=== PATIENT | male | born 1955 | race Caucasian/White ===

== ENCOUNTER 2018-03-27 17:33 | Inpatient (IN) | payer OTHER ==
[2018-03-27] MEDS ORDERED: HYDROCODONE/APAP (5/325) TAB PO (18:30)
[2018-03-27] MEDS ORDERED: NACL 0.9% 3 ML SYG IV (18:30)
[2018-03-27] MEDS ORDERED: ACETAMINOPHEN 325 MG TAB PO (18:30)
[2018-03-27] MEDS ORDERED: MAGNESIUM HYDROXIDE 30ML CUP PO (18:30)
[2018-03-27] MEDS ORDERED: IBUPROFEN 600 MG TAB PO (18:30)
[2018-03-27] MEDS ORDERED: NA PHOSPHATE/BIPHOS 133 ML ENEMA PR (18:30)
[2018-03-27] MEDS ORDERED: ONDANSETRON 4 MG TAB PO (18:30)
[2018-03-27] MEDS ORDERED: BISACODYL 10 MG SUPP PR (18:30)
[2018-03-27] MEDS ORDERED: METOCLOPRAMIDE 10 MG INJ IV (18:30)
[2018-03-27 18:50] LABS: ANION GAP 12 (8-16); BLOOD UREA NITROGEN 29 mg/dl (7-20); CALCIUM 9.2 mg/dl (8.4-10.2); CARBON DIOXIDE 24 mmol/L (21-31); CHLORIDE 111 mmol/L (97-110); CREATININE 1.67 mg/dl (0.61-1.24); GLUCOSE 177 mg/dl (70-220); POTASSIUM 5.2 mmol/L (3.5-5.1); SODIUM 142 mmol/L (135-144)
[2018-03-27] MEDS ORDERED: GLUCAGON 1 MG INJ IM (19:00)
[2018-03-27] MEDS ORDERED: GLUCOSE GEL 15 GRAM TUBE PO ×2 (19:00)
[2018-03-27] MEDS ORDERED: GLUCOSE GEL 15 GRAM TUBE BUCCAL (19:00)
[2018-03-27] MEDS ORDERED: DEXTROSE 50% 50 ML SYRINGE IV ×2 (19:00)
[2018-03-27] MEDS: HYPOGLYCEMIA PROTOCOL when Glucose is <70 mg/dL or symptomatic <90 mg/dL. XX (19:11)
[2018-03-27] MEDS: Discontinue current oral sulfonylureas (glyburide, glipizide, and/or glimepiride) prior to XX (19:11)
[2018-03-27] MEDS: SOD CHLORIDE 0.9% 1,000 ML IV (19:20)
[2018-03-27] MEDS: AMLODIPINE 5 MG TAB PO (19:20)
[2018-03-27] MEDS: INSULIN ASPART [NOVOLOG] 3 ML PEN SC ×2 (19:47→20:42)
[2018-03-27] MEDS ORDERED: INSULIN GLARGINE [LANtus] 3 ML PEN SC (20:00)
[2018-03-27] MEDS: TRIMETHOPRIM/SULFAMETHOX (DS) TAB PO (20:40)
[2018-03-27] MEDS: LEVOFLOXACIN 750 MG TABLET PO (20:40)
[2018-03-27] MEDS ORDERED: INSULIN ASPART [NOVOLOG] 3 ML PEN SC (21:00)
[2018-03-27 23:11] LABS: ADD UMIC YES; UR ASCORBIC ACID NEGATIVE (NEGATIVE); UR BACTERIA FEW /HPF (NONE SEEN); UR BILIRUBIN (Dip) NEGATIVE (NEGATIVE); UR BLOOD (Dip) 1+ mg/dL (NEGATIVE); UR CLARITY CLEAR (CLEAR); UR COLOR YELLOW (YELLOW); UR GLUCOSE (Dip) 1+ mg/dL (NEGATIVE); UR KETONES (Dip) NEGATIVE (NEGATIVE); UR LEUKOCYTE ESTERASE (Dip) NEGATIVE Leu/ul (NEGATIVE); UR NITRITE (Dip) NEGATIVE (NEGATIVE); UR RBC 6 /HPF (0-5); UR TOTAL PROTEIN (Dip) 3+ mg/dl (NEGATIVE); UR UROBILINOGEN (Dip) NEGATIVE (NEGATIVE); UR WBC 2 /HPF (0-5)
[2018-03-27 23:23] LABS: CREATININE,URINE RANDOM 57.78 mg/dl (20-370)
[2018-03-27 23:35] LABS: SODIUM,URINE RANDOM 98 mmol/L (30-90)
[2018-03-28 00:09] LABS: OSMOLALITY,URINE 422 mOsm/kg (250-1200)
[2018-03-28] MEDS: ACCU-CHEK XX (01:47)
[2018-03-28] MEDS: SOD CHLORIDE 0.9% 1,000 ML IV (02:41)
[2018-03-28 05:51] LABS: ADD MAN DIFF? NO
[2018-03-28 06:01] LABS: WHITE BLOOD COUNT 6.4 10^3/ul (4.8-10.8)
[2018-03-28 06:01] LABS: ABNORMAL IP MESSAGE 1; BASOPHILS % 0.2 % (0.0-2.0); EOSINOPHILS # 0.2 10^3/ul (0.0-0.5); EOSINOPHILS % 2.4 % (0.0-7.0); HEMATOCRIT 24.1 % (42.0-52.0); HEMOGLOBIN 8.1 g/dl (14.0-18.0); LYMPHOCYTES # 1.4 10^3/ul (0.8-2.9); LYMPHOCYTES % 21.2 % (15.0-51.0); MEAN CORPUSCULAR HEMOGLOBIN 30.6 pg (29.0-33.0); MEAN CORPUSCULAR HGB CONC 33.6 g/dl (32.0-37.0); MEAN CORPUSCULAR VOLUME 90.9 fl (82.0-101.0); MEAN PLATELET VOLUME 10.6 fl (7.4-10.4); MONOCYTE # 0.5 10^3/ul (0.3-0.9); MONOCYTES % 8.2 % (0.0-11.0); NEUTROPHIL # 4.3 10^3/ul (1.6-7.5); NEUTROPHILS % 67.7 % (39.0-77.0); PLATELET COUNT 98 10^3/UL (140-415); POSITIVE DIFF @See below; RED BLOOD COUNT 2.65 10^6/ul (4.70-6.10); RED CELL DISTRIBUTION WIDTH 12.9 % (11.5-14.5)
[2018-03-28 06:15] LABS: ANION GAP 13 (8-16); BLOOD UREA NITROGEN 29 mg/dl (7-20); CALCIUM 8.5 mg/dl (8.4-10.2); CARBON DIOXIDE 20 mmol/L (21-31); CHLORIDE 114 mmol/L (97-110); CREATININE 1.49 mg/dl (0.61-1.24); GLUCOSE 119 mg/dl (70-220); MAGNESIUM 1.7 mg/dl (1.7-2.5); POTASSIUM 4.9 mmol/L (3.5-5.1); SODIUM 142 mmol/L (135-144)
[2018-03-28] MEDS: INSULIN ASPART [NOVOLOG] 3 ML PEN SC ×4 (08:05→20:42)
[2018-03-28 08:06] LABS: HEMOGLOBIN A1C 6.1 % (0-5.9)
[2018-03-28] MEDS: TRIMETHOPRIM/SULFAMETHOX (DS) TAB PO ×2 (08:06→20:35)
[2018-03-28] MEDS: AMLODIPINE 5 MG TAB PO (08:07)
[2018-03-28] MEDS: ENOXAPARIN 40 MG/0.4 ML SYG SC (08:13)
[2018-03-28] MEDS ORDERED: INSULIN ASPART [NOVOLOG] 3 ML PEN SC (08:15)
[2018-03-28 09:06] LABS: OSMOLALITY 294 mOsm/kg (280-295)
[2018-03-29] MEDS: ACCU-CHEK XX (00:24)
[2018-03-29 06:28] LABS: ANION GAP 13 (8-16); BLOOD UREA NITROGEN 25 mg/dl (7-20); CALCIUM 8.9 mg/dl (8.4-10.2); CARBON DIOXIDE 20 mmol/L (21-31); CHLORIDE 110 mmol/L (97-110); CREATININE 1.79 mg/dl (0.61-1.24); GLUCOSE 122 mg/dl (70-220); MAGNESIUM 1.5 mg/dl (1.7-2.5); PHOSPHORUS 4.2 mg/dl (2.5-4.9); POTASSIUM 5.3 mmol/L (3.5-5.1); SODIUM 138 mmol/L (135-144)
[2018-03-29] MEDS: TRIMETHOPRIM/SULFAMETHOX (DS) TAB PO (08:06)
[2018-03-29] MEDS: AMLODIPINE 5 MG TAB PO (08:06)
[2018-03-29] MEDS: MAGNESIUM OXIDE 400 MG TAB PO (08:07)
[2018-03-29] MEDS: ENOXAPARIN 40 MG/0.4 ML SYG SC (08:09)
[2018-03-29] MEDS: INSULIN ASPART [NOVOLOG] 3 ML PEN SC ×4 (08:09→20:38)
[2018-03-29] MEDS: ONDANSETRON 4 MG INJ IV (10:50)
[2018-03-29] MEDS: BISACODYL (EC) 5 MG TAB PO (12:11)
[2018-03-29] MEDS: DOCUSATE SODIUM 100 MG CAP PO (17:33)
[2018-03-29] MEDS: LEVOFLOXACIN 750 MG TABLET PO (20:38)
[2018-03-30] MEDS: ACCU-CHEK XX (02:00)
[2018-03-30 05:55] LABS: ADD MAN DIFF? NO
[2018-03-30 06:00] LABS: ABNORMAL IP MESSAGE 1; BASOPHILS % 0.1 % (0.0-2.0); EOSINOPHILS # 0.1 10^3/ul (0.0-0.5); EOSINOPHILS % 1.9 % (0.0-7.0); HEMATOCRIT 23.3 % (42.0-52.0); HEMOGLOBIN 7.9 g/dl (14.0-18.0); LYMPHOCYTES # 1.3 10^3/ul (0.8-2.9); LYMPHOCYTES % 19.3 % (15.0-51.0); MEAN CORPUSCULAR HEMOGLOBIN 30.4 pg (29.0-33.0); MEAN CORPUSCULAR HGB CONC 33.9 g/dl (32.0-37.0); MEAN CORPUSCULAR VOLUME 89.6 fl (82.0-101.0); MEAN PLATELET VOLUME 11.1 fl (7.4-10.4); MONOCYTE # 0.6 10^3/ul (0.3-0.9); MONOCYTES % 8.5 % (0.0-11.0); NEUTROPHIL # 4.7 10^3/ul (1.6-7.5); NEUTROPHILS % 69.9 % (39.0-77.0); PLATELET COUNT 95 10^3/UL (140-415); POSITIVE DIFF @See below; RED CELL DISTRIBUTION WIDTH 12.7 % (11.5-14.5)
[2018-03-30 06:00] LABS: WHITE BLOOD COUNT 6.7 10^3/ul (4.8-10.8)
[2018-03-30 06:26] LABS: ANION GAP 13 (8-16); BLOOD UREA NITROGEN 29 mg/dl (7-20); CALCIUM 8.9 mg/dl (8.4-10.2); CARBON DIOXIDE 21 mmol/L (21-31); CHLORIDE 110 mmol/L (97-110); CREATININE 2.08 mg/dl (0.61-1.24); GLUCOSE 113 mg/dl (70-220); MAGNESIUM 1.7 mg/dl (1.7-2.5); PHOSPHORUS 4.2 mg/dl (2.5-4.9); POTASSIUM 5.2 mmol/L (3.5-5.1); SODIUM 139 mmol/L (135-144)
[2018-03-30] MEDS: INSULIN ASPART [NOVOLOG] 3 ML PEN SC ×4 (08:15→20:26)
[2018-03-30] MEDS: AMLODIPINE 5 MG TAB PO (09:21)
[2018-03-30] MEDS: ENOXAPARIN 40 MG/0.4 ML SYG SC (09:25)
[2018-03-30] MEDS ORDERED: hydrALAzine 20 MG INJ IV (20:30)
[2018-03-31] MEDS: ACCU-CHEK XX (02:00)
[2018-03-31 06:51] LABS: ANION GAP 13 (8-16); BLOOD UREA NITROGEN 30 mg/dl (7-20); CALCIUM 9.1 mg/dl (8.4-10.2); CARBON DIOXIDE 22 mmol/L (21-31); CHLORIDE 110 mmol/L (97-110); CREATININE 2.01 mg/dl (0.61-1.24); GLUCOSE 108 mg/dl (70-220); MAGNESIUM 1.8 mg/dl (1.7-2.5); PHOSPHORUS 4.6 mg/dl (2.5-4.9); SODIUM 140 mmol/L (135-144)
[2018-03-31] MEDS: INSULIN ASPART [NOVOLOG] 3 ML PEN SC ×4 (08:15→20:24)
[2018-03-31] MEDS: AMLODIPINE 10 MG TAB PO (08:16)
[2018-03-31] MEDS: ENOXAPARIN 40 MG/0.4 ML SYG SC (08:17)
[2018-03-31] MEDS ORDERED: VANCOMYCIN IV PER PHARMACY XX (12:00)
[2018-03-31 12:37] LABS: PROTIME 15.4 Sec (11.9-14.9); PT RATIO 1.2
[2018-03-31] MEDS: CEFEPIME 2GM/50 ML (PMX) 50 ML IVPB ×2 (14:00→20:24)
[2018-03-31] MEDS: VANCOMYCIN 1.75 GM in SOD CHLORIDE 0.9% 500 ML IVPB (14:36)
[2018-03-31] MEDS: HEPARIN 5,000 UNIT/0.5 ML VIAL SC (20:27)
[2018-04-01] MEDS: ACCU-CHEK XX (02:00)
[2018-04-01 05:52] LABS: ADD MAN DIFF? NO
[2018-04-01 06:00] LABS: WHITE BLOOD COUNT 6.9 10^3/ul (4.8-10.8)
[2018-04-01 06:00] LABS: BASOPHILS % 0.3 % (0.0-2.0); EOSINOPHILS # 0.2 10^3/ul (0.0-0.5); EOSINOPHILS % 2.4 % (0.0-7.0); HEMATOCRIT 24.7 % (42.0-52.0); HEMOGLOBIN 8.5 g/dl (14.0-18.0); LYMPHOCYTES # 1.5 10^3/ul (0.8-2.9); LYMPHOCYTES % 21.6 % (15.0-51.0); MEAN CORPUSCULAR HEMOGLOBIN 30.9 pg (29.0-33.0); MEAN CORPUSCULAR HGB CONC 34.4 g/dl (32.0-37.0); MEAN CORPUSCULAR VOLUME 89.8 fl (82.0-101.0); MONOCYTE # 0.6 10^3/ul (0.3-0.9); MONOCYTES % 9.2 % (0.0-11.0); NEUTROPHIL # 4.6 10^3/ul (1.6-7.5); NEUTROPHILS % 66.1 % (39.0-77.0); PLATELET COUNT 105 10^3/UL (140-415); RED BLOOD COUNT 2.75 10^6/ul (4.70-6.10); RED CELL DISTRIBUTION WIDTH 12.5 % (11.5-14.5)
[2018-04-01 06:33] LABS: ANION GAP 16 (8-16); BLOOD UREA NITROGEN 34 mg/dl (7-20); CALCIUM 8.7 mg/dl (8.4-10.2); CARBON DIOXIDE 18 mmol/L (21-31); CHLORIDE 111 mmol/L (97-110); CREATININE 1.96 mg/dl (0.61-1.24); GLUCOSE 119 mg/dl (70-220); POTASSIUM 5.2 mmol/L (3.5-5.1); SODIUM 140 mmol/L (135-144)
[2018-04-01] MEDS: INSULIN ASPART [NOVOLOG] 3 ML PEN SC ×5 (08:15→20:33)
[2018-04-01] MEDS: CEFEPIME 2GM/50 ML IVPB (08:34)
[2018-04-01] MEDS: AMLODIPINE 10 MG TAB PO (08:34)
[2018-04-01] MEDS: HEPARIN 5,000 UNIT/0.5 ML VIAL SC ×3 (08:39→20:33)
[2018-04-01] MEDS: SOD CHLORIDE 0.9% 1,000 ML IV ×2 (12:53→21:45)
[2018-04-01] MEDS: NA POLYST SULFON 15 GM/60 ML BTL PO (12:53)
[2018-04-02] MEDS: ACCU-CHEK XX (01:06)
[2018-04-02] MEDS: VANCOMYCIN 1.25 GM in SOD CHLORIDE 0.9% 250 ML IVPB (01:13)
[2018-04-02 06:07] LABS: ADD MAN DIFF? NO
[2018-04-02 06:10] LABS: WHITE BLOOD COUNT 6.8 10^3/ul (4.8-10.8)
[2018-04-02 06:10] LABS: ABNORMAL IP MESSAGE 1; BASOPHILS % 0.3 % (0.0-2.0); EOSINOPHILS # 0.2 10^3/ul (0.0-0.5); EOSINOPHILS % 2.2 % (0.0-7.0); HEMATOCRIT 24.3 % (42.0-52.0); HEMOGLOBIN 8.1 g/dl (14.0-18.0); LYMPHOCYTES # 1.5 10^3/ul (0.8-2.9); LYMPHOCYTES % 22.2 % (15.0-51.0); MEAN CORPUSCULAR HEMOGLOBIN 29.7 pg (29.0-33.0); MEAN CORPUSCULAR HGB CONC 33.3 g/dl (32.0-37.0); MEAN PLATELET VOLUME 10.9 fl (7.4-10.4); MONOCYTE # 0.6 10^3/ul (0.3-0.9); MONOCYTES % 8.1 % (0.0-11.0); NEUTROPHIL # 4.5 10^3/ul (1.6-7.5); NEUTROPHILS % 66.9 % (39.0-77.0); PLATELET COUNT 99 10^3/UL (140-415); POSITIVE DIFF @See below; RED BLOOD COUNT 2.73 10^6/ul (4.70-6.10); RED CELL DISTRIBUTION WIDTH 12.4 % (11.5-14.5)
[2018-04-02 06:35] LABS: ANION GAP 13 (8-16); BLOOD UREA NITROGEN 27 mg/dl (7-20); CALCIUM 8.9 mg/dl (8.4-10.2); CARBON DIOXIDE 21 mmol/L (21-31); CHLORIDE 112 mmol/L (97-110); CREATININE 1.65 mg/dl (0.61-1.24); GLUCOSE 117 mg/dl (70-220); POTASSIUM 4.8 mmol/L (3.5-5.1); SODIUM 141 mmol/L (135-144)
[2018-04-02] MEDS: SOD CHLORIDE 0.9% 1,000 ML IV ×3 (08:00→18:00)
[2018-04-02] MEDS: INSULIN ASPART [NOVOLOG] 3 ML PEN SC ×4 (08:15→21:00)
[2018-04-02] MEDS: HEPARIN 5,000 UNIT/0.5 ML VIAL SC ×2 (09:00→21:00)
[2018-04-02] MEDS: AMLODIPINE 10 MG TAB PO (09:08)
[2018-04-02] MEDS: CEFEPIME 2GM/50 ML IVPB (09:08)
[2018-04-02] MEDS ORDERED: PROPOFOL 20 ML (20:14)
[2018-04-02] MEDS ORDERED: MIDAZOLAM 1 MG/ML 2 ML INJ (20:14)
[2018-04-02] MEDS ORDERED: ONDANSETRON 4 MG INJ (20:27)
[2018-04-02] MEDS ORDERED: DEXAMETHASONE 4 MG/ML 1 ML INJ (20:27)
[2018-04-02] MEDS ORDERED: METOCLOPRAMIDE 10 MG INJ (20:27)
[2018-04-02] MEDS ORDERED: ACETAMINOPHEN 1000MG/100ML IV 100 ML (20:28)
[2018-04-02] MEDS: BUPIVACAINE 0.5% (SDV) 30 ML INJ (20:38)
[2018-04-02] MEDS ORDERED: FENTAnyl 50 MCG/ML VIAL IV ×3 (21:00)
[2018-04-02] MEDS ORDERED: OXYCODONE/ACETAMINOPHEN (5/325) TAB PO (21:00)
[2018-04-02] MEDS ORDERED: hydrALAzine 20 MG INJ IV (21:00)
[2018-04-02] MEDS ORDERED: LABETALOL HCL 20MG INJ IV (21:00)
[2018-04-02] MEDS ORDERED: MEPERIDINE 25 MG INJ IV (21:00)
[2018-04-02] MEDS ORDERED: HYDROmorphONE (0.2 MG/ML) 10ML SYG IV ×3 (21:00)
[2018-04-02] MEDS ORDERED: EPHEDrine SULFATE 50 MG/5 ML SYG IV (21:00)
[2018-04-02] MEDS ORDERED: METOCLOPRAMIDE 10 MG INJ IV (21:00)
[2018-04-02] MEDS ORDERED: ONDANSETRON 4 MG INJ IV (21:00)
[2018-04-02] MEDS ORDERED: DIPHENHYDRAMINE 50 MG INJ IV (21:00)
[2018-04-03] MEDS: ACCU-CHEK XX (02:00)
[2018-04-03] MEDS: VANCOMYCIN 750 MG in DEXTROSE 5% 150 ML IVPB ×2 (04:00→15:24)
[2018-04-03] MEDS: SOD CHLORIDE 0.9% 1,000 ML IV ×3 (04:13→23:45)
[2018-04-03 05:50] LABS: ADD MAN DIFF? NO
[2018-04-03 05:55] LABS: BASOPHILS % 0.2 % (0.0-2.0); HEMATOCRIT 23.6 % (42.0-52.0); LYMPHOCYTES # 0.8 10^3/ul (0.8-2.9); LYMPHOCYTES % 14.2 % (15.0-51.0); MEAN CORPUSCULAR HEMOGLOBIN 30.3 pg (29.0-33.0); MEAN CORPUSCULAR HGB CONC 33.9 g/dl (32.0-37.0); MEAN CORPUSCULAR VOLUME 89.4 fl (82.0-101.0); MEAN PLATELET VOLUME 11.5 fl (7.4-10.4); MONOCYTE # 0.1 10^3/ul (0.3-0.9); MONOCYTES % 2.5 % (0.0-11.0); NEUTROPHIL # 4.6 10^3/ul (1.6-7.5); NEUTROPHILS % 82.4 % (39.0-77.0); PLATELET COUNT 100 10^3/UL (140-415); RED BLOOD COUNT 2.64 10^6/ul (4.70-6.10); RED CELL DISTRIBUTION WIDTH 12.3 % (11.5-14.5)
[2018-04-03 05:55] LABS: WHITE BLOOD COUNT 5.6 10^3/ul (4.8-10.8)
[2018-04-03 06:32] LABS: ANION GAP 17 (8-16); BLOOD UREA NITROGEN 24 mg/dl (7-20); CALCIUM 8.4 mg/dl (8.4-10.2); CARBON DIOXIDE 17 mmol/L (21-31); CHLORIDE 113 mmol/L (97-110); CREATININE 1.41 mg/dl (0.61-1.24); GLUCOSE 172 mg/dl (70-220); POTASSIUM 4.8 mmol/L (3.5-5.1); SODIUM 142 mmol/L (135-144)
[2018-04-03] MEDS: CEFEPIME 2GM/50 ML IVPB (08:25)
[2018-04-03] MEDS: AMLODIPINE 10 MG TAB PO (08:25)
[2018-04-03] MEDS: INSULIN ASPART [NOVOLOG] 3 ML PEN SC ×4 (08:35→21:00)
[2018-04-03] MEDS: HEPARIN 5,000 UNIT/0.5 ML VIAL SC ×2 (09:00→20:11)
[2018-04-03] MEDS: LIDOCAINE 1% (MPF) 5 ML VIAL SC (12:30)
[2018-04-03 14:19] LABS: VANCOMYCIN,TROUGH 7.5 ug/ml (10.0-20.0)
[2018-04-03] MEDS: VANCOMYCIN 1.25 GM in SOD CHLORIDE 0.9% 250 ML IVPB (15:23)
[2018-04-04] MEDS: ACCU-CHEK XX (01:14)
[2018-04-04] MEDS: VANCOMYCIN 750 MG in DEXTROSE 5% 150 ML IVPB ×2 (03:56→16:16)
[2018-04-04] MEDS: SOD CHLORIDE 0.9% 1,000 ML IV ×2 (06:00→10:00)
[2018-04-04 06:04] LABS: ADD MAN DIFF? NO
[2018-04-04 06:21] LABS: WHITE BLOOD COUNT 6.5 10^3/ul (4.8-10.8)
[2018-04-04 06:21] LABS: ABNORMAL IP MESSAGE 1; BASOPHILS % 0.2 % (0.0-2.0); EOSINOPHILS # 0.1 10^3/ul (0.0-0.5); EOSINOPHILS % 1.2 % (0.0-7.0); HEMATOCRIT 21.4 % (42.0-52.0); HEMOGLOBIN 7.3 g/dl (14.0-18.0); LYMPHOCYTES # 1.8 10^3/ul (0.8-2.9); LYMPHOCYTES % 27.8 % (15.0-51.0); MEAN CORPUSCULAR HEMOGLOBIN 30.3 pg (29.0-33.0); MEAN CORPUSCULAR HGB CONC 34.1 g/dl (32.0-37.0); MEAN CORPUSCULAR VOLUME 88.8 fl (82.0-101.0); MEAN PLATELET VOLUME 10.9 fl (7.4-10.4); MONOCYTE # 0.6 10^3/ul (0.3-0.9); MONOCYTES % 8.4 % (0.0-11.0); NEUTROPHILS % 62.1 % (39.0-77.0); PLATELET COUNT 88 10^3/UL (140-415); POSITIVE DIFF @See below; RED BLOOD COUNT 2.41 10^6/ul (4.70-6.10); RED CELL DISTRIBUTION WIDTH 12.4 % (11.5-14.5)
[2018-04-04 06:46] LABS: ANION GAP 14 (8-16); BLOOD UREA NITROGEN 19 mg/dl (7-20); CALCIUM 8.3 mg/dl (8.4-10.2); CARBON DIOXIDE 19 mmol/L (21-31); CHLORIDE 114 mmol/L (97-110); CREATININE 1.37 mg/dl (0.61-1.24); GLUCOSE 117 mg/dl (70-220); POTASSIUM 3.6 mmol/L (3.5-5.1); SODIUM 143 mmol/L (135-144)
[2018-04-04] MEDS: INSULIN ASPART [NOVOLOG] 3 ML PEN SC ×3 (07:56→17:05)
[2018-04-04] MEDS: AMLODIPINE 10 MG TAB PO (08:13)
[2018-04-04] MEDS: CEFEPIME 2GM/50 ML IVPB (08:13)
[2018-04-04] MEDS: HEPARIN 5,000 UNIT/0.5 ML VIAL SC (08:17)
[2018-04-04 16:28] LABS: HEMATOCRIT 23.2 % (42.0-52.0); HEMOGLOBIN 7.9 g/dl (14.0-18.0)
== END 2018-04-04 19:20 | disposition home or self-care (01) | DRG 580 ==
LOC: MS2 04-02 12:50
PROC: 0J9R0ZZ Drainage of Left Foot Subcutaneous Tissue and Fascia, Open Approach (ICD-10-PCS; principal; 2018-04-02 19:00)
PROC: 02HV33Z Insertion of Infusion Device into Superior Vena Cava, Percutaneous Approach (ICD-10-PCS; 2018-04-02 20:13)
DX: L02.612 Cutaneous abscess of left foot (principal); M86.8X7 Other osteomyelitis, ankle and foot; M84.478A Pathological fracture, left toe(s), initial encounter for fracture; L03.116 Cellulitis of left lower limb; N17.9 Acute kidney failure, unspecified; E11.69 Type 2 diabetes mellitus with other specified complication; E11.621 Type 2 diabetes mellitus with foot ulcer; E11.628 Type 2 diabetes mellitus with other skin complications; E11.40 Type 2 diabetes mellitus with diabetic neuropathy, unspecified; L97.529 Non-pressure chronic ulcer of other part of left foot with unspecified severity; E66.9 Obesity, unspecified; Z68.31 Body mass index [BMI] 31.0-31.9, adult; I73.89 Other specified peripheral vascular diseases; I12.9 Hypertensive chronic kidney disease with stage 1 through stage 4 chronic kidney disease, or unspecified chronic kidney disease; N18.9 Chronic kidney disease, unspecified
CPT/HCPCS: 36569; 71045; 73630-LT; 73718; 76775; 76937; 80048; 80202; 81001; 81003; 82540; 82962; 83036; 83735; 83930; 83935; 84100; 84155; 84300; 85014; 85018; 85025; 85610; 87070; 93922

== ENCOUNTER 2019-05-21 23:54 | Emergency (ER) | payer OTHER ==
[2019-05-22 01:22] LABS: ADD MAN DIFF? NO
[2019-05-22 01:29] LABS: ABNORMAL IP MESSAGE 1; BASOPHILS % 0.5 % (0.0-2.0); EOSINOPHILS # 0.1 10^3/ul (0.0-0.5); EOSINOPHILS % 2.9 % (0.0-7.0); HEMATOCRIT 23.3 % (42.0-52.0); HEMOGLOBIN 8.2 g/dl (14.0-18.0); LYMPHOCYTES # 0.7 10^3/ul (0.8-2.9); MEAN CORPUSCULAR HEMOGLOBIN 29.6 pg (29.0-33.0); MEAN CORPUSCULAR HGB CONC 35.2 g/dl (32.0-37.0); MEAN CORPUSCULAR VOLUME 84.1 fl (82.0-101.0); MEAN PLATELET VOLUME 10.5 fl (7.4-10.4); MONOCYTE # 0.5 10^3/ul (0.3-0.9); MONOCYTES % 12.3 % (0.0-11.0); NEUTROPHIL # 2.4 10^3/ul (1.6-7.5); PLATELET COUNT 74 10^3/UL (140-415); POSITIVE DIFF @See below; RED BLOOD COUNT 2.77 10^6/ul (4.70-6.10); RED CELL DISTRIBUTION WIDTH 14.8 % (11.5-14.5)
[2019-05-22 01:29] LABS: WHITE BLOOD COUNT 3.7 10^3/ul (4.8-10.8)
[2019-05-22 01:45] LABS: ADD UMIC YES; UR ASCORBIC ACID NEGATIVE (NEGATIVE); UR BILIRUBIN (Dip) NEGATIVE (NEGATIVE); UR BLOOD (Dip) NEGATIVE (NEGATIVE); UR CLARITY CLEAR (CLEAR); UR COLOR YELLOW (YELLOW); UR GLUCOSE (Dip) NEGATIVE (NEGATIVE); UR KETONES (Dip) NEGATIVE (NEGATIVE); UR LEUKOCYTE ESTERASE (Dip) NEGATIVE Leu/ul (NEGATIVE); UR NITRITE (Dip) NEGATIVE (NEGATIVE); UR RBC 1 /HPF (0-5); UR SPECIFIC GRAVITY (Dip) 1.005 (1.003-1.030); UR TOTAL PROTEIN (Dip) 2+ mg/dl (NEGATIVE); UR UROBILINOGEN (Dip) NEGATIVE (NEGATIVE); UR WBC 0 /HPF (0-5)
[2019-05-22 01:49] LABS: ALANINE AMINOTRANSFERASE 36 IU/L (13-69); ALBUMIN 3.7 g/dl (3.3-4.9); ALBUMIN/GLOBULIN RATIO 0.88; ALKALINE PHOSPHATASE 284 IU/L (42-121); ANION GAP 11 (5-13); ASPARTATE AMINO TRANSFERASE 37 IU/L (15-46); BILIRUBIN,INDIRECT 0.7 mg/dl (0-1.1); BILIRUBIN,TOTAL 0.7 mg/dl (0.2-1.3); BLOOD UREA NITROGEN 27 mg/dl (7-20); CALCIUM 8.8 mg/dl (8.4-10.2); CARBON DIOXIDE 20 mmol/L (21-31); CHLORIDE 100 mmol/L (97-110); Estimated GFR 29 mL/min (>60); GLUCOSE 97 mg/dl (70-220); INR 1.18; PARTIAL THROMBOPLASTIN TIME 37.5 Sec (23.0-35.0); POTASSIUM 4.6 mmol/L (3.5-5.1); PROTIME 15.1 Sec (11.9-14.9); PT RATIO 1.2; SODIUM 131 mmol/L (135-144); TOTAL PROTEIN 7.9 g/dl (6.1-8.1)
[2019-05-22] MEDS: ONDANSETRON 4 MG INJ IV (01:58)
[2019-05-22] MEDS: SOD CHLORIDE 0.9% 500 ML IV (01:58)
[2019-05-22 02:01] LABS: TROPONIN-I < 0.012 ng/ml (0.000-0.120)
== END 2019-05-22 04:30 | disposition home or self-care (01) ==
LOC: E/R 23:54
DX: R11.2 Nausea with vomiting, unspecified (principal); C22.8 Malignant neoplasm of liver, primary, unspecified as to type; R07.9 Chest pain, unspecified; R10.9 Unspecified abdominal pain
CPT/HCPCS: 36415; 71045; 74176; 80053; 81001; 83605; 84484; 85025; 85610; 85730; 87040-91; 87086; 93005; 99285-25

== ENCOUNTER 2019-06-04 17:07 | Inpatient (IN) | payer OTHER ==
[2019-06-04 19:46] LABS: ABNORMAL IP MESSAGE 1; HEMATOCRIT 34.3 % (42.0-52.0); HEMOGLOBIN 11.9 g/dl (14.0-18.0); MEAN CORPUSCULAR HEMOGLOBIN 28.8 pg (29.0-33.0); MEAN CORPUSCULAR HGB CONC 34.7 g/dl (32.0-37.0); MEAN CORPUSCULAR VOLUME 83.1 fl (82.0-101.0); PLATELET COUNT 35 10^3/UL (140-415); POSITIVE DIFF @See below; RED BLOOD COUNT 4.13 10^6/ul (4.70-6.10); RED CELL DISTRIBUTION WIDTH 16.4 % (11.5-14.5)
[2019-06-04 19:46] LABS: WHITE BLOOD COUNT 8.4 10^3/ul (4.8-10.8)
[2019-06-04] MEDS: DEXTROSE 5%-0.45% NACL 1,000 ML IV (19:54)
[2019-06-04] MEDS: CLONIDINE 0.2 MG/24 HR PATCH TRANSDERM (19:55)
[2019-06-04 20:00] LABS: ADD MAN DIFF? YES
[2019-06-04 20:08] LABS: ALANINE AMINOTRANSFERASE 812 IU/L (13-69); ALBUMIN 3.1 g/dl (3.3-4.9); ALBUMIN/GLOBULIN RATIO 0.88; ALKALINE PHOSPHATASE 215 IU/L (42-121); ANION GAP 9 (5-13); BILIRUBIN,INDIRECT 2.1 mg/dl (0-1.1); BILIRUBIN,TOTAL 2.1 mg/dl (0.2-1.3); BLOOD UREA NITROGEN 34 mg/dl (7-20); CALCIUM 8.3 mg/dl (8.4-10.2); CARBON DIOXIDE 19 mmol/L (21-31); CHLORIDE 108 mmol/L (97-110); CREATININE 2.67 mg/dl (0.61-1.24); Estimated GFR 24 mL/min (>60); GLUCOSE 107 mg/dl (70-220); POTASSIUM 4.7 mmol/L (3.5-5.1); SODIUM 136 mmol/L (135-144); TOTAL PROTEIN 6.6 g/dl (6.1-8.1)
[2019-06-04 20:11] LABS: INR 1.26; PARTIAL THROMBOPLASTIN TIME 31.4 Sec (23.0-35.0); PROTIME 15.9 Sec (11.9-14.9); PT RATIO 1.2
[2019-06-04] MEDS: ONDANSETRON 4 MG INJ IV (20:11)
[2019-06-04] MEDS: hydrALAzine 20 MG INJ IV (20:12)
[2019-06-04 20:22] LABS: ASPARTATE AMINO TRANSFERASE 1059 IU/L (15-46)
[2019-06-04 20:50] LABS: ANISOCYTOSIS 1+ (0-0); ERYTHROBLAST% (NRBC) (M) 1 % (0-0); GIANT THROMBO% (M) 9 % (0-0); LYMPHOCYTES #M 1.5 10^3/ul (0.8-2.9); LYMPHOCYTES % (M) 19 % (15-51); MONOCYTE #M 0.5 10^3/ul (0.3-0.9); MONOCYTES % (M) 6 % (0-11); PLATELET ESTIMATE DECREASED; POIKILOCYTOSIS 3+ (0-0); POLYCHROMASIA 1+ (0-0); SEGMENTED NEUTROPHILS (M) % 75 % (39-77); SMUDGE%M 5 % (0-0)
[2019-06-04] MEDS: OCTREOTIDE 500 MCG in DEXTROSE 5% 49 ML IV (20:53)
[2019-06-05] MEDS: hydrALAzine 20 MG INJ IV ×3 (00:03→19:44)
[2019-06-05] MEDS: ACCU-CHEK XX (02:00)
[2019-06-05] MEDS: PANTOPRAZOLE 40 MG INJ IV ×2 (05:15→17:40)
[2019-06-05] MEDS: INSULIN ASPART [NOVOLOG] 3 ML PEN SC ×5 (05:15→23:10)
[2019-06-05] MEDS: ONDANSETRON 4 MG INJ IV (05:16)
[2019-06-05 05:59] LABS: ADD MAN DIFF? NO
[2019-06-05 06:03] LABS: WHITE BLOOD COUNT 8.2 10^3/ul (4.8-10.8)
[2019-06-05 06:03] LABS: ABNORMAL IP MESSAGE 1; BASOPHILS % 0.2 % (0.0-2.0); EOSINOPHILS % 0.4 % (0.0-7.0); HEMATOCRIT 33.4 % (42.0-52.0); HEMOGLOBIN 11.5 g/dl (14.0-18.0); LYMPHOCYTES # 0.6 10^3/ul (0.8-2.9); LYMPHOCYTES % 7.8 % (15.0-51.0); MEAN CORPUSCULAR HEMOGLOBIN 28.8 pg (29.0-33.0); MEAN CORPUSCULAR HGB CONC 34.4 g/dl (32.0-37.0); MEAN CORPUSCULAR VOLUME 83.5 fl (82.0-101.0); MEAN PLATELET VOLUME 11.2 fl (7.4-10.4); MONOCYTE # 0.7 10^3/ul (0.3-0.9); NEUTROPHIL # 6.8 10^3/ul (1.6-7.5); NEUTROPHILS % 82.1 % (39.0-77.0); PLATELET COUNT 33 10^3/UL (140-415); POSITIVE DIFF @See below; RED CELL DISTRIBUTION WIDTH 16.9 % (11.5-14.5)
[2019-06-05 06:55] LABS: ALBUMIN 2.9 g/dl (3.3-4.9); ALBUMIN/GLOBULIN RATIO 0.82; ALKALINE PHOSPHATASE 223 IU/L (42-121); ANION GAP 9 (5-13); BILIRUBIN,INDIRECT 1.4 mg/dl (0-1.1); BILIRUBIN,TOTAL 1.4 mg/dl (0.2-1.3); BLOOD UREA NITROGEN 37 mg/dl (7-20); CALCIUM 8.4 mg/dl (8.4-10.2); CARBON DIOXIDE 18 mmol/L (21-31); CHLORIDE 108 mmol/L (97-110); CREATININE 2.63 mg/dl (0.61-1.24); Estimated GFR 25 mL/min (>60); GLUCOSE 146 mg/dl (70-220); POTASSIUM 4.2 mmol/L (3.5-5.1); SODIUM 135 mmol/L (135-144); TOTAL PROTEIN 6.4 g/dl (6.1-8.1)
[2019-06-05 06:58] LABS: ANION GAP 8 (5-13); BLOOD UREA NITROGEN 37 mg/dl (7-20); CALCIUM 8.4 mg/dl (8.4-10.2); CARBON DIOXIDE 19 mmol/L (21-31); CHLORIDE 110 mmol/L (97-110); CREATININE 2.55 mg/dl (0.61-1.24); Estimated GFR 26 mL/min (>60); GLUCOSE 150 mg/dl (70-220); POTASSIUM 4.3 mmol/L (3.5-5.1); SODIUM 137 mmol/L (135-144)
[2019-06-05 07:30] LABS: ALANINE AMINOTRANSFERASE 1128 IU/L (13-69); ASPARTATE AMINO TRANSFERASE 1242 IU/L (15-46)
[2019-06-05] MEDS ORDERED: GLUCAGON 1 MG INJ IM (08:30)
[2019-06-05] MEDS ORDERED: DEXTROSE 50% 50 ML SYRINGE IV ×2 (08:30)
[2019-06-05] MEDS ORDERED: GLUCOSE GEL 15 GRAM TUBE BUCCAL (08:30)
[2019-06-05] MEDS ORDERED: GLUCOSE GEL 15 GRAM TUBE PO ×2 (08:30)
[2019-06-05] MEDS: PHYTONADIONE 10 MG in DEXTROSE 5% 50 ML IVPB (08:42)
[2019-06-05] MEDS: DEXTROSE 5%-0.45% NACL 1,000 ML IV ×2 (08:43→22:45)
[2019-06-05] MEDS: PROPOFOL 40 ML (13:35)
[2019-06-05] MEDS: LIDOCAINE 2% (SDV) 5 ML INJ (13:35)
[2019-06-05] MEDS ORDERED: EPHEDrine 25 MG/5 ML SYG IV (14:30)
[2019-06-05] MEDS ORDERED: ONDANSETRON 4 MG INJ IV (14:30)
[2019-06-05] MEDS ORDERED: HYDROmorphONE 1 MG/5 ML IV SYRINGE IV (14:30)
[2019-06-05] MEDS: PROPRANOLOL 20 MG TAB PO ×2 (15:23→23:09)
[2019-06-05] MEDS: OCTREOTIDE 500 MCG in DEXTROSE 5% 49 ML IV (15:56)
[2019-06-05] MEDS: ALBUMIN HUMAN 25% 100 ML IV (17:52)
[2019-06-05] MEDS: CEFTRIAXONE 1 GM/50 ML (PMX) 50 ML IVPB (21:27)
[2019-06-06] MEDS: ALBUMIN HUMAN 25% 100 ML IV ×3 (01:27→17:16)
[2019-06-06] MEDS: ACCU-CHEK XX (02:00)
[2019-06-06] MEDS: INSULIN ASPART [NOVOLOG] 3 ML PEN SC ×4 (06:00→21:13)
[2019-06-06 06:03] LABS: ADD MAN DIFF? NO
[2019-06-06] MEDS: PANTOPRAZOLE 40 MG INJ IV ×2 (06:05→17:15)
[2019-06-06 06:09] LABS: WHITE BLOOD COUNT 8.8 10^3/ul (4.8-10.8)
[2019-06-06 06:09] LABS: ABNORMAL IP MESSAGE 1; BASOPHILS % 0.1 % (0.0-2.0); EOSINOPHILS % 0.1 % (0.0-7.0); HEMATOCRIT 26.9 % (42.0-52.0); HEMOGLOBIN 9.5 g/dl (14.0-18.0); LYMPHOCYTES # 0.9 10^3/ul (0.8-2.9); LYMPHOCYTES % 9.8 % (15.0-51.0); MEAN CORPUSCULAR HGB CONC 35.3 g/dl (32.0-37.0); MEAN CORPUSCULAR VOLUME 84.9 fl (82.0-101.0); MEAN PLATELET VOLUME 10.7 fl (7.4-10.4); MONOCYTE # 0.9 10^3/ul (0.3-0.9); MONOCYTES % 10.4 % (0.0-11.0); NEUTROPHIL # 6.9 10^3/ul (1.6-7.5); NEUTROPHILS % 78.6 % (39.0-77.0); POSITIVE DIFF @See below; RED BLOOD COUNT 3.17 10^6/ul (4.70-6.10); RED CELL DISTRIBUTION WIDTH 16.9 % (11.5-14.5)
[2019-06-06 06:21] LABS: PLATELET COUNT 29 10^3/UL (140-415)
[2019-06-06 06:31] LABS: ANION GAP 9 (5-13); BLOOD UREA NITROGEN 36 mg/dl (7-20); CALCIUM 8.2 mg/dl (8.4-10.2); CARBON DIOXIDE 18 mmol/L (21-31); CHLORIDE 108 mmol/L (97-110); CREATININE 2.48 mg/dl (0.61-1.24); Estimated GFR 27 mL/min (>60); GLUCOSE 145 mg/dl (70-220); POTASSIUM 3.8 mmol/L (3.5-5.1); SODIUM 135 mmol/L (135-144)
[2019-06-06] MEDS: PHYTONADIONE 10 MG in DEXTROSE 5% 50 ML IVPB (08:36)
[2019-06-06] MEDS: PROPRANOLOL 20 MG TAB PO ×2 (08:37→21:11)
[2019-06-06] MEDS: OCTREOTIDE 500 MCG in DEXTROSE 5% 49 ML IV (11:28)
[2019-06-06] MEDS: CEFTRIAXONE 1 GM/50 ML (PMX) 50 ML IVPB (13:51)
[2019-06-06] MEDS: DEXTROSE 5%-0.45% NACL 1,000 ML IV (16:04)
[2019-06-07] MEDS: ACCU-CHEK XX (02:00)
[2019-06-07] MEDS: ALBUMIN HUMAN 25% 100 ML IV ×2 (02:07→08:26)
[2019-06-07] MEDS: hydrALAzine 20 MG INJ IV ×3 (04:43→20:37)
[2019-06-07] MEDS: OCTREOTIDE 500 MCG in DEXTROSE 5% 49 ML IV (04:44)
[2019-06-07] MEDS: INSULIN ASPART [NOVOLOG] 3 ML PEN SC ×3 (04:44→17:53)
[2019-06-07] MEDS: PANTOPRAZOLE 40 MG INJ IV ×2 (04:44→17:30)
[2019-06-07 06:40] LABS: ADD MAN DIFF? NO
[2019-06-07] MEDS: DEXTROSE 5%-0.45% NACL 1,000 ML IV (06:40)
[2019-06-07 06:45] LABS: ABNORMAL IP MESSAGE 1; BASOPHILS % 0.1 % (0.0-2.0); EOSINOPHILS # 0.1 10^3/ul (0.0-0.5); EOSINOPHILS % 0.7 % (0.0-7.0); HEMATOCRIT 25.7 % (42.0-52.0); LYMPHOCYTES # 0.9 10^3/ul (0.8-2.9); LYMPHOCYTES % 11.4 % (15.0-51.0); MEAN CORPUSCULAR HEMOGLOBIN 29.4 pg (29.0-33.0); MONOCYTE # 0.8 10^3/ul (0.3-0.9); MONOCYTES % 10.2 % (0.0-11.0); NEUTROPHIL # 5.9 10^3/ul (1.6-7.5); NEUTROPHILS % 77.2 % (39.0-77.0); PLATELET COUNT 31 10^3/UL (140-415); POSITIVE DIFF @See below; RED BLOOD COUNT 3.06 10^6/ul (4.70-6.10); RED CELL DISTRIBUTION WIDTH 16.6 % (11.5-14.5)
[2019-06-07 06:45] LABS: WHITE BLOOD COUNT 7.6 10^3/ul (4.8-10.8)
[2019-06-07 07:09] LABS: ANION GAP 9 (5-13); BLOOD UREA NITROGEN 34 mg/dl (7-20); CALCIUM 7.9 mg/dl (8.4-10.2); CARBON DIOXIDE 18 mmol/L (21-31); CHLORIDE 105 mmol/L (97-110); Estimated GFR 32 mL/min (>60); GLUCOSE 146 mg/dl (70-220); POTASSIUM 3.7 mmol/L (3.5-5.1); SODIUM 132 mmol/L (135-144)
[2019-06-07 07:37] LABS: PROSTATE SPECIFIC ANTIGEN 0.5 ng/ml (0.0-4.0)
[2019-06-07] MEDS: PHYTONADIONE 10 MG in DEXTROSE 5% 50 ML IVPB (08:24)
[2019-06-07] MEDS: PROPRANOLOL 20 MG TAB PO ×2 (08:25→20:33)
[2019-06-07] MEDS: CEFTRIAXONE 1 GM/50 ML (PMX) 50 ML IVPB (14:33)
[2019-06-08] MEDS: ACCU-CHEK XX (01:34)
[2019-06-08] MEDS: OCTREOTIDE 500 MCG in DEXTROSE 5% 49 ML IV ×2 (03:09→23:34)
[2019-06-08] MEDS: hydrALAzine 20 MG INJ IV ×3 (03:10→23:50)
[2019-06-08] MEDS: INSULIN ASPART [NOVOLOG] 3 ML PEN SC ×5 (06:00→23:34)
[2019-06-08] MEDS: PANTOPRAZOLE 40 MG INJ IV ×2 (06:09→17:42)
[2019-06-08 10:10] LABS: PATH REVIEW? YES
[2019-06-08] MEDS: PHYTONADIONE 10 MG in DEXTROSE 5% 50 ML IVPB (10:56)
[2019-06-08] MEDS: POLYETHYLENE GLYCOL 17 GM PACKET PO (10:56)
[2019-06-08] MEDS: PROPRANOLOL 20 MG TAB PO ×2 (10:57→21:27)
[2019-06-08] MEDS: CEFTRIAXONE 1 GM/50 ML (PMX) 50 ML IVPB (12:30)
[2019-06-09] MEDS: ACCU-CHEK XX (01:48)
[2019-06-09] MEDS: hydrALAzine 20 MG INJ IV ×2 (04:17→14:00)
[2019-06-09] MEDS: INSULIN ASPART [NOVOLOG] 3 ML PEN SC ×4 (06:00→20:32)
[2019-06-09] MEDS: PANTOPRAZOLE 40 MG INJ IV ×2 (06:44→17:23)
[2019-06-09] MEDS: PROPRANOLOL 20 MG TAB PO ×2 (08:50→20:32)
[2019-06-09] MEDS: POLYETHYLENE GLYCOL 17 GM PACKET PO (08:50)
[2019-06-09] MEDS ORDERED: BISACODYL 10 MG SUPP PR (09:00)
[2019-06-09] MEDS: BISACODYL (EC) 5 MG TAB PO (10:00)
[2019-06-09] MEDS: LUBIPROSTONE 24 MCG CAP PO ×2 (10:30→21:00)
[2019-06-09] MEDS: CEFTRIAXONE 1 GM/50 ML (PMX) 50 ML IVPB (12:52)
[2019-06-09] MEDS ORDERED: CEFTRIAXONE 1 GM/NS 50 ML IVPB (16:00)
[2019-06-09] MEDS: OCTREOTIDE 500 MCG in DEXTROSE 5% 49 ML IV (20:31)
[2019-06-10] MEDS: hydrALAzine 20 MG INJ IV ×2 (00:15→14:03)
[2019-06-10] MEDS: ACCU-CHEK XX (02:00)
[2019-06-10 03:48] LABS: OCCULT BLOOD STOOL POSITIVE (NEGATIVE)
[2019-06-10] MEDS: PANTOPRAZOLE 40 MG INJ IV ×2 (06:06→17:37)
[2019-06-10 06:52] LABS: ADD MAN DIFF? NO
[2019-06-10 06:56] LABS: ABNORMAL IP MESSAGE 1; BASOPHILS % 0.3 % (0.0-2.0); EOSINOPHILS # 0.1 10^3/ul (0.0-0.5); EOSINOPHILS % 2.8 % (0.0-7.0); HEMOGLOBIN 9.1 g/dl (14.0-18.0); LYMPHOCYTES # 0.8 10^3/ul (0.8-2.9); LYMPHOCYTES % 20.4 % (15.0-51.0); MEAN CORPUSCULAR HEMOGLOBIN 29.5 pg (29.0-33.0); MEAN CORPUSCULAR VOLUME 84.4 fl (82.0-101.0); MEAN PLATELET VOLUME 11.5 fl (7.4-10.4); MONOCYTE # 0.7 10^3/ul (0.3-0.9); MONOCYTES % 17.8 % (0.0-11.0); NEUTROPHIL # 2.3 10^3/ul (1.6-7.5); NEUTROPHILS % 58.2 % (39.0-77.0); PLATELET COUNT 44 10^3/UL (140-415); POSITIVE DIFF @See below; RED BLOOD COUNT 3.08 10^6/ul (4.70-6.10); RED CELL DISTRIBUTION WIDTH 16.8 % (11.5-14.5)
[2019-06-10 07:15] LABS: PHOSPHORUS 4.2 mg/dl (2.5-4.9)
[2019-06-10 07:15] LABS: MAGNESIUM 1.6 mg/dl (1.7-2.5)
[2019-06-10 07:17] LABS: ALANINE AMINOTRANSFERASE 171 IU/L (13-69); ALBUMIN 2.9 g/dl (3.3-4.9); ALBUMIN/GLOBULIN RATIO 0.93; ALKALINE PHOSPHATASE 235 IU/L (42-121); ANION GAP 13 (5-13); ASPARTATE AMINO TRANSFERASE 41 IU/L (15-46); BILIRUBIN,INDIRECT 0.7 mg/dl (0-1.1); BILIRUBIN,TOTAL 0.7 mg/dl (0.2-1.3); BLOOD UREA NITROGEN 40 mg/dl (7-20); CALCIUM 8.1 mg/dl (8.4-10.2); CARBON DIOXIDE 14 mmol/L (21-31); CHLORIDE 103 mmol/L (97-110); CREATININE 2.06 mg/dl (0.61-1.24); Estimated GFR 33 mL/min (>60); GLUCOSE 131 mg/dl (70-220); POTASSIUM 3.9 mmol/L (3.5-5.1); SODIUM 130 mmol/L (135-144)
[2019-06-10 07:20] LABS: INR 1.31; PROTIME 16.4 Sec (11.9-14.9); PT RATIO 1.3
[2019-06-10] MEDS: PROPRANOLOL 20 MG TAB PO (08:47)
[2019-06-10] MEDS: LUBIPROSTONE 24 MCG CAP PO (08:47)
[2019-06-10] MEDS: POLYETHYLENE GLYCOL 17 GM PACKET PO (08:47)
[2019-06-10] MEDS: AMLODIPINE 5 MG TAB PO ×2 (08:48→12:13)
[2019-06-10] MEDS: INSULIN ASPART [NOVOLOG] 3 ML PEN SC ×3 (08:58→17:37)
[2019-06-10] MEDS: CEFTRIAXONE 1 GM/NS 50 ML IVPB (13:44)
== END 2019-06-10 18:59 | disposition home or self-care (01) | DRG 378 ==
LOC: TEL 17:07
PROVIDERS: Internal Medicine
PROC: 06L38CZ Occlusion of Esophageal Vein with Extraluminal Device, Via Natural or Artificial Opening Endoscopic (ICD-10-PCS; principal; 2019-06-05 12:45)
DX: K92.2 Gastrointestinal hemorrhage, unspecified (principal); C22.0 Liver cell carcinoma; N17.9 Acute kidney failure, unspecified; E87.2 Acidosis; K76.6 Portal hypertension; D69.6 Thrombocytopenia, unspecified; E11.21 Type 2 diabetes mellitus with diabetic nephropathy; E11.22 Type 2 diabetes mellitus with diabetic chronic kidney disease; N18.3 Chronic kidney disease, stage 3 (moderate); K74.60 Unspecified cirrhosis of liver; I12.9 Hypertensive chronic kidney disease with stage 1 through stage 4 chronic kidney disease, or unspecified chronic kidney disease; E78.5 Hyperlipidemia, unspecified; K31.89 Other diseases of stomach and duodenum; I85.10 Secondary esophageal varices without bleeding; Z79.4 Long term (current) use of insulin; Z87.891 Personal history of nicotine dependence
CPT/HCPCS: 80048; 80053; 82105; 82270; 82962; 83735; 84100; 84153; 84154; 85025; 85610; 85730; 87040-91

== ENCOUNTER 2019-07-06 02:21 | Inpatient (IN) | payer OTHER ==
[2019-07-06] MEDS: FUROSEMIDE 40 MG INJ IV (03:17)
[2019-07-06 04:13] LABS: ADD MAN DIFF? NO
[2019-07-06 04:18] LABS: WHITE BLOOD COUNT 3.9 10^3/ul (4.8-10.8)
[2019-07-06 04:18] LABS: ABNORMAL IP MESSAGE 1; BASOPHILS % 0.5 % (0.0-2.0); EOSINOPHILS # 0.2 10^3/ul (0.0-0.5); EOSINOPHILS % 4.3 % (0.0-7.0); HEMATOCRIT 26.7 % (42.0-52.0); HEMOGLOBIN 9.1 g/dl (14.0-18.0); LYMPHOCYTES # 0.8 10^3/ul (0.8-2.9); LYMPHOCYTES % 19.4 % (15.0-51.0); MEAN CORPUSCULAR HEMOGLOBIN 29.9 pg (29.0-33.0); MEAN CORPUSCULAR HGB CONC 34.1 g/dl (32.0-37.0); MEAN CORPUSCULAR VOLUME 87.8 fl (82.0-101.0); MEAN PLATELET VOLUME 10.5 fl (7.4-10.4); MONOCYTE # 0.3 10^3/ul (0.3-0.9); MONOCYTES % 8.2 % (0.0-11.0); NEUTROPHIL # 2.6 10^3/ul (1.6-7.5); NEUTROPHILS % 67.1 % (39.0-77.0); PLATELET COUNT 38 10^3/UL (140-415); POSITIVE DIFF @See below; RED BLOOD COUNT 3.04 10^6/ul (4.70-6.10); RED CELL DISTRIBUTION WIDTH 17.2 % (11.5-14.5)
[2019-07-06 04:34] LABS: ALANINE AMINOTRANSFERASE 46 IU/L (13-69); ALBUMIN 3.6 g/dl (3.3-4.9); ALBUMIN/GLOBULIN RATIO 1.09; ALKALINE PHOSPHATASE 232 IU/L (42-121); ANION GAP 13 (5-13); ASPARTATE AMINO TRANSFERASE 46 IU/L (15-46); BILIRUBIN,INDIRECT 0.7 mg/dl (0-1.1); BILIRUBIN,TOTAL 0.7 mg/dl (0.2-1.3); BLOOD UREA NITROGEN 24 mg/dl (7-20); CALCIUM 8.8 mg/dl (8.4-10.2); CARBON DIOXIDE 17 mmol/L (21-31); CHLORIDE 97 mmol/L (97-110); Estimated GFR 28 mL/min (>60); GLUCOSE 117 mg/dl (70-220); LIPASE 295 U/L (23-300); POTASSIUM 4.2 mmol/L (3.5-5.1); SODIUM 127 mmol/L (135-144); TOTAL PROTEIN 6.9 g/dl (6.1-8.1)
[2019-07-06 04:45] LABS: B-TYPE NATRIURETIC PEPTIDE 315 PG/ML (0-125); TROPONIN-I < 0.012 ng/ml (0.000-0.120)
[2019-07-06] MEDS: CEFTRIAXONE 1 GM/50 ML (PMX) 50 ML IVPB ×2 (05:00→17:00)
[2019-07-06] MEDS: AZITHROMYCIN 500MG/NS (PMX) 250 ML IVPB (06:09)
[2019-07-06] MEDS ORDERED: BISACODYL (EC) 5 MG TAB PO (17:00)
[2019-07-06] MEDS ORDERED: DOCUSATE SODIUM 100 MG CAP PO (17:00)
[2019-07-06] MEDS: PANTOPRAZOLE (EC) 40 MG TAB PO (17:11)
[2019-07-06] MEDS: LOSARTAN 25 MG TAB PO (17:11)
[2019-07-06] MEDS: AMLODIPINE 10 MG TAB PO (17:11)
[2019-07-06] MEDS: PENTOXIFYLLINE (SR) 400 MG TAB PO (23:10)
[2019-07-07 06:14] LABS: ABNORMAL IP MESSAGE 1; HEMATOCRIT 23.1 % (42.0-52.0); HEMOGLOBIN 7.9 g/dl (14.0-18.0); MEAN CORPUSCULAR HGB CONC 34.2 g/dl (32.0-37.0); MEAN CORPUSCULAR VOLUME 87.8 fl (82.0-101.0); MEAN PLATELET VOLUME 11.4 fl (7.4-10.4); PLATELET COUNT 32 10^3/UL (140-415); POSITIVE DIFF @See below; RED BLOOD COUNT 2.63 10^6/ul (4.70-6.10); RED CELL DISTRIBUTION WIDTH 17.1 % (11.5-14.5)
[2019-07-07 06:14] LABS: WHITE BLOOD COUNT 2.2 10^3/ul (4.8-10.8)
[2019-07-07 06:27] LABS: ADD MAN DIFF? YES
[2019-07-07 06:40] LABS: ANION GAP 9 (5-13); BLOOD UREA NITROGEN 24 mg/dl (7-20); CALCIUM 8.3 mg/dl (8.4-10.2); CARBON DIOXIDE 19 mmol/L (21-31); CHLORIDE 100 mmol/L (97-110); CREATININE 2.25 mg/dl (0.61-1.24); Estimated GFR 30 mL/min (>60); GLUCOSE 81 mg/dl (70-220); MAGNESIUM 1.9 mg/dl (1.7-2.5); POTASSIUM 4.5 mmol/L (3.5-5.1); SODIUM 128 mmol/L (135-144)
[2019-07-07] MEDS: ALLOPURINOL 100 MG TAB PO (08:29)
[2019-07-07] MEDS: LINAGLIPTIN 5 MG TABLET PO (08:29)
[2019-07-07] MEDS: AZITHROMYCIN 250 MG TAB PO (08:29)
[2019-07-07] MEDS: PANTOPRAZOLE (EC) 40 MG TAB PO (08:29)
[2019-07-07] MEDS: PENTOXIFYLLINE (SR) 400 MG TAB PO ×2 (08:29→20:18)
[2019-07-07] MEDS: AMLODIPINE 10 MG TAB PO (08:30)
[2019-07-07] MEDS: CEFTRIAXONE 1 GM/50 ML (PMX) 50 ML IVPB (08:30)
[2019-07-07] MEDS: LOSARTAN 25 MG TAB PO (08:30)
[2019-07-07 09:00] LABS: ANISOCYTOSIS 1+ (0-0); BAND NEUTROPHILS % (M) 1 % (0-4); BASOPHILS % (M) 2 % (0-2); EOSINOPHILS % (M) 3 % (0-7); LYMPHOCYTES #M 0.6 10^3/ul (0.8-2.9); LYMPHOCYTES % (M) 29 % (15-51); MONOCYTES % (M) 2 % (0-11); PLATELET ESTIMATE SIG DECREASED; POLYCHROMASIA 1+ (0-0); REACTIVE LYMPHOCYTES% (M) 3 % (0-0); SEG NEUT #M 1.3 10^3/ul (1.6-7.5); SEGMENTED NEUTROPHILS (M) % 60 % (39-77); SMUDGE%M 10 % (0-0)
[2019-07-07] MEDS ORDERED: LENVIMA XX (09:00)
[2019-07-07] MEDS: BUMETANIDE 1 MG INJ IV (17:32)
[2019-07-07 18:03] LABS: SODIUM,URINE RANDOM 19 mmol/L (30-90)
[2019-07-07 18:08] LABS: CREATININE,URINE RANDOM 65.08 mg/dl (20-370); PROTEIN/CREAT RATIO 2.85 RATIO
[2019-07-07 18:28] LABS: OSMOLALITY,URINE 192 mOsm/kg (250-1200)
[2019-07-07 18:40] LABS: CREATINE KINASE 100 IU/L (23-200)
[2019-07-07 18:51] LABS: CK INDEX 2.9; TROPONIN-I < 0.012 ng/ml (0.000-0.120)
[2019-07-07 19:00] LABS: CK-MB 2.94 ng/ml (0.0-2.4)
[2019-07-07] MEDS: LUBIPROSTONE 24 MCG CAP PO (20:18)
[2019-07-07] MEDS: PROPRANOLOL 20 MG TAB PO (20:19)
[2019-07-08 01:16] LABS: CREATINE KINASE 95 IU/L (23-200)
[2019-07-08 01:25] LABS: CK INDEX 2.9; TROPONIN-I < 0.012 ng/ml (0.000-0.120)
[2019-07-08 01:26] LABS: CK-MB 2.77 ng/ml (0.0-2.4)
[2019-07-08 06:02] LABS: ADD MAN DIFF? NO
[2019-07-08 06:06] LABS: ABNORMAL IP MESSAGE 1; BASOPHILS % 0.7 % (0.0-2.0); EOSINOPHILS # 0.1 10^3/ul (0.0-0.5); EOSINOPHILS % 3.9 % (0.0-7.0); HEMATOCRIT 23.6 % (42.0-52.0); HEMOGLOBIN 8.2 g/dl (14.0-18.0); LYMPHOCYTES # 0.7 10^3/ul (0.8-2.9); LYMPHOCYTES % 25.7 % (15.0-51.0); MEAN CORPUSCULAR HEMOGLOBIN 30.5 pg (29.0-33.0); MEAN CORPUSCULAR HGB CONC 34.7 g/dl (32.0-37.0); MEAN CORPUSCULAR VOLUME 87.7 fl (82.0-101.0); MEAN PLATELET VOLUME 11.1 fl (7.4-10.4); MONOCYTE # 0.4 10^3/ul (0.3-0.9); MONOCYTES % 12.5 % (0.0-11.0); NEUTROPHIL # 1.6 10^3/ul (1.6-7.5); NEUTROPHILS % 56.8 % (39.0-77.0); POSITIVE DIFF @See below; RED BLOOD COUNT 2.69 10^6/ul (4.70-6.10)
[2019-07-08 06:06] LABS: WHITE BLOOD COUNT 2.8 10^3/ul (4.8-10.8)
[2019-07-08 06:25] LABS: PLATELET COUNT 37 10^3/UL (140-415)
[2019-07-08 06:31] LABS: CHOLESTEROL 117 mg/dl (100-200); URIC ACID 6.3 mg/dl (3.1-7.9)
[2019-07-08 06:31] LABS: ANION GAP 4 (5-13); BLOOD UREA NITROGEN 23 mg/dl (7-20); CALCIUM 8.4 mg/dl (8.4-10.2); CARBON DIOXIDE 20 mmol/L (21-31); CHLORIDE 103 mmol/L (97-110); CHOL/HDL RATIO 3.4 RATIO; CREATINE KINASE 80 IU/L (23-200); CREATININE 2.25 mg/dl (0.61-1.24); Estimated GFR 30 mL/min (>60); GLUCOSE 88 mg/dl (70-220); HDL CHOLESTEROL 34 mg/dl (30-78); LDL CHOLESTEROL,CALCULATED 67 mg/dl; POTASSIUM 4.6 mmol/L (3.5-5.1); SODIUM 127 mmol/L (135-144); TRIGLYCERIDES 82 mg/dl (0-149)
[2019-07-08 06:35] LABS: CREATINE KINASE 81 IU/L (23-200)
[2019-07-08 06:36] LABS: CK INDEX 2.8; CK-MB 2.27 ng/ml (0.0-2.4); TROPONIN-I < 0.012 ng/ml (0.000-0.120)
[2019-07-08] MEDS: BUMETANIDE 1 MG INJ IV ×2 (06:39→18:15)
[2019-07-08] MEDS: traMADol 50 MG TAB PO (06:42)
[2019-07-08] MEDS: [UNRECOGNIZED DRUG - OTHER] XX ×3 (07:00→23:00)
[2019-07-08 08:14] LABS: OSMOLALITY 271 mOsm/kg (280-295)
[2019-07-08] MEDS: AZITHROMYCIN 250 MG TAB PO (08:58)
[2019-07-08] MEDS: CEFTRIAXONE 1 GM/50 ML (PMX) 50 ML IVPB (08:58)
[2019-07-08] MEDS: PANTOPRAZOLE (EC) 40 MG TAB PO (08:59)
[2019-07-08] MEDS: ALLOPURINOL 100 MG TAB PO (08:59)
[2019-07-08] MEDS: PENTOXIFYLLINE (SR) 400 MG TAB PO ×2 (08:59→21:20)
[2019-07-08] MEDS: LUBIPROSTONE 24 MCG CAP PO ×2 (08:59→21:20)
[2019-07-08] MEDS: AMLODIPINE 10 MG TAB PO (08:59)
[2019-07-08] MEDS: PROPRANOLOL 20 MG TAB PO ×2 (09:00→21:21)
[2019-07-08] MEDS: LINAGLIPTIN 5 MG TABLET PO (09:06)
[2019-07-09] MEDS: BUMETANIDE 1 MG INJ IV ×2 (05:38→17:02)
[2019-07-09] MEDS: [UNRECOGNIZED DRUG - OTHER] XX ×3 (05:39→23:00)
[2019-07-09 07:41] LABS: ANION GAP 6 (5-13); BLOOD UREA NITROGEN 25 mg/dl (7-20); CALCIUM 8.3 mg/dl (8.4-10.2); CARBON DIOXIDE 22 mmol/L (21-31); CHLORIDE 103 mmol/L (97-110); CREATININE 2.19 mg/dl (0.61-1.24); Estimated GFR 31 mL/min (>60); GLUCOSE 72 mg/dl (70-220); POTASSIUM 4.7 mmol/L (3.5-5.1); SODIUM 131 mmol/L (135-144)
[2019-07-09] MEDS: PANTOPRAZOLE (EC) 40 MG TAB PO (08:45)
[2019-07-09] MEDS: LUBIPROSTONE 24 MCG CAP PO ×2 (08:45→21:22)
[2019-07-09] MEDS: PENTOXIFYLLINE (SR) 400 MG TAB PO ×2 (08:45→21:22)
[2019-07-09] MEDS: ALLOPURINOL 100 MG TAB PO (08:46)
[2019-07-09] MEDS: PROPRANOLOL 20 MG TAB PO ×2 (08:46→21:25)
[2019-07-09] MEDS: LINAGLIPTIN 5 MG TABLET PO (08:46)
[2019-07-09] MEDS: AMLODIPINE 10 MG TAB PO (08:46)
[2019-07-09] MEDS: AZITHROMYCIN 250 MG TAB PO (08:46)
[2019-07-09] MEDS: CEFTRIAXONE 1 GM/50 ML (PMX) 50 ML IVPB (08:47)
[2019-07-10 06:20] LABS: PLATELET COUNT 36 10^3/UL (140-415)
[2019-07-10] MEDS: BUMETANIDE 1 MG INJ IV ×2 (06:29→17:48)
[2019-07-10 06:44] LABS: ANION GAP 7 (5-13); BLOOD UREA NITROGEN 29 mg/dl (7-20); CARBON DIOXIDE 20 mmol/L (21-31); CHLORIDE 103 mmol/L (97-110); CREATININE 2.25 mg/dl (0.61-1.24); GLUCOSE 124 mg/dl (70-220); POTASSIUM 4.1 mmol/L (3.5-5.1); SODIUM 130 mmol/L (135-144)
[2019-07-10 06:45] LABS: CALCIUM 8.1 mg/dl (8.4-10.2); Estimated GFR 30 mL/min (>60)
[2019-07-10 06:51] LABS: INR 1.17; PT RATIO 1.2
[2019-07-10 06:52] LABS: PARTIAL THROMBOPLASTIN TIME 34.9 Sec (23.0-35.0); THROMBIN TIME 16.3 SEC (13.8-19.1)
[2019-07-10] MEDS: [UNRECOGNIZED DRUG - OTHER] XX ×3 (07:00→23:00)
[2019-07-10] MEDS: PENTOXIFYLLINE (SR) 400 MG TAB PO ×2 (09:11→21:07)
[2019-07-10] MEDS: LUBIPROSTONE 24 MCG CAP PO ×2 (09:11→21:07)
[2019-07-10] MEDS: ALLOPURINOL 100 MG TAB PO (09:11)
[2019-07-10] MEDS: AZITHROMYCIN 250 MG TAB PO (09:11)
[2019-07-10] MEDS: CEFTRIAXONE 1 GM/50 ML (PMX) 50 ML IVPB (09:11)
[2019-07-10] MEDS: PROPRANOLOL 20 MG TAB PO ×2 (09:11→21:07)
[2019-07-10] MEDS: AMLODIPINE 10 MG TAB PO (09:11)
[2019-07-10] MEDS: PANTOPRAZOLE (EC) 40 MG TAB PO (09:11)
[2019-07-10] MEDS: LINAGLIPTIN 5 MG TABLET PO (09:14)
[2019-07-10 15:44] LABS: FOLATE 15.9 ng/ml (2.8-20.0)
[2019-07-11] MEDS: BUMETANIDE 1 MG INJ IV ×2 (05:48→17:05)
[2019-07-11 06:07] LABS: ADD MAN DIFF? NO
[2019-07-11 06:17] LABS: ABNORMAL IP MESSAGE 1; BASOPHILS % 0.4 % (0.0-2.0); EOSINOPHILS # 0.1 10^3/ul (0.0-0.5); EOSINOPHILS % 2.1 % (0.0-7.0); HEMATOCRIT 22.1 % (42.0-52.0); HEMOGLOBIN 7.7 g/dl (14.0-18.0); LYMPHOCYTES # 0.8 10^3/ul (0.8-2.9); LYMPHOCYTES % 34.7 % (15.0-51.0); MEAN CORPUSCULAR HEMOGLOBIN 30.2 pg (29.0-33.0); MEAN CORPUSCULAR HGB CONC 34.8 g/dl (32.0-37.0); MEAN CORPUSCULAR VOLUME 86.7 fl (82.0-101.0); MEAN PLATELET VOLUME 10.6 fl (7.4-10.4); MONOCYTE # 0.3 10^3/ul (0.3-0.9); MONOCYTES % 12.3 % (0.0-11.0); NEUTROPHIL # 1.2 10^3/ul (1.6-7.5); NEUTROPHILS % 50.5 % (39.0-77.0); PLATELET COUNT 37 10^3/UL (140-415); POSITIVE DIFF @See below; RED BLOOD COUNT 2.55 10^6/ul (4.70-6.10); RED CELL DISTRIBUTION WIDTH 17.2 % (11.5-14.5)
[2019-07-11 06:17] LABS: WHITE BLOOD COUNT 2.4 10^3/ul (4.8-10.8)
[2019-07-11] MEDS: [UNRECOGNIZED DRUG - OTHER] XX ×3 (06:41→23:00)
[2019-07-11 06:59] LABS: ANION GAP 7 (5-13); BLOOD UREA NITROGEN 31 mg/dl (7-20); CALCIUM 8.2 mg/dl (8.4-10.2); CARBON DIOXIDE 21 mmol/L (21-31); CHLORIDE 104 mmol/L (97-110); CREATININE 2.11 mg/dl (0.61-1.24); Estimated GFR 32 mL/min (>60); GLUCOSE 80 mg/dl (70-220); POTASSIUM 3.9 mmol/L (3.5-5.1); SODIUM 132 mmol/L (135-144)
[2019-07-11] MEDS: LUBIPROSTONE 24 MCG CAP PO ×2 (09:00→21:13)
[2019-07-11] MEDS: PANTOPRAZOLE (EC) 40 MG TAB PO (09:30)
[2019-07-11] MEDS: PENTOXIFYLLINE (SR) 400 MG TAB PO ×2 (09:31→21:13)
[2019-07-11] MEDS: AZITHROMYCIN 250 MG TAB PO (09:31)
[2019-07-11] MEDS: ALLOPURINOL 100 MG TAB PO (09:31)
[2019-07-11] MEDS: PROPRANOLOL 20 MG TAB PO ×2 (09:32→21:13)
[2019-07-11] MEDS: LINAGLIPTIN 5 MG TABLET PO (09:38)
[2019-07-11 10:33] LABS: ANISOCYTOSIS 1+ (0-0); BAND NEUTROPHILS % (M) 3 % (0-4); BASOPHILS % (M) 1 % (0-2); BURR CELLS 2+ (0-0); EOSINOPHILS % (M) 3 % (0-7); GIANT THROMBO% (M) 4 % (0-0); LYMPHOCYTES #M 0.5 10^3/ul (0.8-2.9); LYMPHOCYTES % (M) 21 % (15-51); MONOCYTE #M 0.2 10^3/ul (0.3-0.9); MONOCYTES % (M) 9 % (0-11); PLATELET ESTIMATE SIG DECREASED; POIKILOCYTOSIS 1+ (0-0); SEG NEUT #M 1.5 10^3/ul (1.6-7.5); SEGMENTED NEUTROPHILS (M) % 63 % (39-77); SMUDGE%M 18 % (0-0)
[2019-07-11] MEDS: CITRIC ACID/NA CITRATE 30 ML CUP PO ×2 (12:28→21:13)
[2019-07-11 13:42] LABS: PROTEIN, TOTAL 5.4 g/dL (6.1-8.1)
[2019-07-12] MEDS: BUMETANIDE 1 MG INJ IV (05:15)
[2019-07-12 05:27] LABS: ADD MAN DIFF? NO
[2019-07-12 05:31] LABS: ABNORMAL IP MESSAGE 1; BASOPHILS % 0.4 % (0.0-2.0); EOSINOPHILS # 0.1 10^3/ul (0.0-0.5); EOSINOPHILS % 3.3 % (0.0-7.0); HEMATOCRIT 23.2 % (42.0-52.0); LYMPHOCYTES # 0.7 10^3/ul (0.8-2.9); LYMPHOCYTES % 26.3 % (15.0-51.0); MEAN CORPUSCULAR HEMOGLOBIN 30.3 pg (29.0-33.0); MEAN CORPUSCULAR HGB CONC 34.5 g/dl (32.0-37.0); MEAN CORPUSCULAR VOLUME 87.9 fl (82.0-101.0); MEAN PLATELET VOLUME 10.2 fl (7.4-10.4); MONOCYTE # 0.4 10^3/ul (0.3-0.9); MONOCYTES % 12.8 % (0.0-11.0); NEUTROPHIL # 1.6 10^3/ul (1.6-7.5); NEUTROPHILS % 56.8 % (39.0-77.0); PLATELET COUNT 40 10^3/UL (140-415); POSITIVE DIFF @See below; RED BLOOD COUNT 2.64 10^6/ul (4.70-6.10); RED CELL DISTRIBUTION WIDTH 17.4 % (11.5-14.5)
[2019-07-12 05:31] LABS: WHITE BLOOD COUNT 2.7 10^3/ul (4.8-10.8)
[2019-07-12 06:00] LABS: ANION GAP 8 (5-13); BLOOD UREA NITROGEN 41 mg/dl (7-20); CALCIUM 8.4 mg/dl (8.4-10.2); CARBON DIOXIDE 23 mmol/L (21-31); CHLORIDE 101 mmol/L (97-110); CREATININE 2.29 mg/dl (0.61-1.24); Estimated GFR 29 mL/min (>60); GLUCOSE 112 mg/dl (70-220); POTASSIUM 4.1 mmol/L (3.5-5.1); SODIUM 132 mmol/L (135-144)
[2019-07-12] MEDS: [UNRECOGNIZED DRUG - OTHER] XX (07:00)
[2019-07-12] MEDS: PANTOPRAZOLE (EC) 40 MG TAB PO (08:45)
[2019-07-12] MEDS: CITRIC ACID/NA CITRATE 30 ML CUP PO (08:45)
[2019-07-12] MEDS: LUBIPROSTONE 24 MCG CAP PO (08:45)
[2019-07-12] MEDS: LINAGLIPTIN 5 MG TABLET PO (08:45)
[2019-07-12] MEDS: PENTOXIFYLLINE (SR) 400 MG TAB PO (08:46)
[2019-07-12] MEDS: PROPRANOLOL 20 MG TAB PO (08:46)
[2019-07-12] MEDS: ALLOPURINOL 100 MG TAB PO (08:46)
[2019-07-15 08:46] LABS: ALBUMIN 2.9 g/dL (3.8-4.8); ALPHA-1-GLOBULINS 0.2 g/dL (0.2-0.3); ALPHA-2-GLOBULINS 0.5 g/dL (0.5-0.9); BETA 2 GLOBULINS 0.4 g/dL (0.2-0.5); BETA GLOBULINS 0.4 g/dL (0.4-0.6); GAMMA GLOBULINS 1.1 g/dL (0.8-1.7)
== END 2019-07-12 12:40 | disposition home or self-care (01) | DRG 194 ==
LOC: E/R 02:21 → PP2 04:56
DX: J18.9 Pneumonia, unspecified organism (principal); C22.7 Other specified carcinomas of liver; N17.9 Acute kidney failure, unspecified; E87.1 Hypo-osmolality and hyponatremia; D61.818 Other pancytopenia; K76.6 Portal hypertension; I13.0 Hypertensive heart and chronic kidney disease with heart failure and stage 1 through stage 4 chronic kidney disease, or unspecified chronic kidney disease; I50.30 Unspecified diastolic (congestive) heart failure; E11.8 Type 2 diabetes mellitus with unspecified complications; N18.3 Chronic kidney disease, stage 3 (moderate); K74.60 Unspecified cirrhosis of liver; E78.5 Hyperlipidemia, unspecified; N50.89 Other specified disorders of the male genital organs; R33.9 Retention of urine, unspecified; Z79.899 Other long term (current) drug therapy
CPT/HCPCS: 36415; 71045; 80048; 80053; 80061; 81003; 82550; 82553; 82570; 82607; 82746; 82962; 83690; 83735; 83880; 83930; 83935; 84155; 84165; 84300; 84484; 84560; 85025; 85049; 85384; 85610; 85670; 85730; 87040-91; 89190; 93005; 93306; 93970; 96374; 96375; 99285-25